=== PATIENT | female | born 1960 | race Caucasian/White ===

== ENCOUNTER 2020-09-11 08:37 | Emergency (ER) | payer OTHER ==
[~2020-09-11] VITALS: Ht 165.1 cm; Wt 78.2 kg
[2020-09-11 08:40] VITALS: BP 113/56
--- NOTE | 2020-09-11 09:08 | NUR ---
Task RN. Pt states she tripped and fell against a wall onto her right side x1 week ago. Pt states rt sided rib pain, worse with deep breathing. Pt placed on monitors, vss, no respir distress. Awaiting ERMD assessment. Report given to Carmen MALDONADO.
--- NOTE | 2020-09-11 09:12 | NUR ---
ERP AT BEDSIDE
[2020-09-11] MEDS ORDERED: KETOROLAC 30 MG/1 ML ONE (09:16)
--- NOTE | 2020-09-11 09:25 | NUR ---
PT TO IMAGING
[2020-09-11] MEDS ORDERED: KETOROLAC 30 MG/1 ML IM ONE (09:30)
--- NOTE | 2020-09-11 10:02 | NUR ---
PT UPRIGHT ON GURNEY, RESTING COMFORTABLY. 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 PT DENIES ANY NEEDS AT THIS TIME. CALL LIGHT AND BELONGINGS WITHIN REACH.
--- NOTE | 2020-09-11 10:26 | NUR ---
Patient given discharge instructions and they have confirmed that they understand the instructions. Patient ambulatory with steady gait.
--- NOTE | 2020-09-11 10:27 | NUR ---
PT LEFT ED PRIOR TO RECEIVING WRITEN D/C INSTRUCTIONS. VERBALIZED UNDERSTANDING OF ALL INSTRUCTIONS PRIOR TO DEPARTURE
== END 2020-09-11 10:28 | disposition home or self-care (01) ==
LOC: ED 10:19
DX: S40.021A Contusion of right upper arm, initial encounter (principal); S20.211A Contusion of right front wall of thorax, initial encounter; R07.89 Other chest pain; Z90.49 Acquired absence of other specified parts of digestive tract; X58.XXXA Exposure to other specified factors, initial encounter; Y93.89 Activity, other specified; Y92.89 Other specified places as the place of occurrence of the external cause; Y99.8 Other external cause status
CPT/HCPCS: 71101; 96372; 99283; J1885